=== PATIENT | male | born 1960 | race Caucasian/White ===

== ENCOUNTER → 2016-10-21 | Outpatient (CLI) | payer BC ==
[~2016-10-21] MED LIST: CHLO1TAB45 PO; DOXE10CA PO; FIBETAB PO; GABA-112 PO; GEMF600T3 PO; LMC/150 PO; METF500T5 PO; OMEP20CA59 PO; PROP80TA2 PO; QUET400T PO; TIZA4CAP PO
--- NOTE | 2016-10-21 13:24 | DIAGNOSTIC IMAGING REPORT ---
ULTRASOUND SOFT TISSUES NECK CLINICAL HISTORY: Neck mass. COMPARISON STUDY: No priors. FINDINGS: Real-time, grayscale, and color flow sonography of the soft tissues of the right neck is performed at the indicated site of interest. There is a benign-appearing right cervical lymph node in this region. This measures up to 6 mm in short axis and is almost completely fatty replaced. No concerning mass or fluid collection is seen. IMPRESSION: A benign-appearing cervical lymph node is incidentally noted the site of interest. Clinical follow-up will be required. This does not meet criteria for fine-needle aspiration. Electronically signed by: Gurinder Beck M.D. 10/21/2016 1:23 PM Dictated Date/Time: 10/21/2016 1:22 PM
== END | disposition home or self-care (01) ==
LOC: C.ULTRBC 13:00
PROVIDERS: ATTEND Physician Assistant
DX: R22.1 Localized swelling, mass and lump, neck (principal); R59.0 Localized enlarged lymph nodes

== ENCOUNTER → 2016-12-31 | Outpatient (CLI) | payer BC ==
[~2016-12-31] MED LIST changes: -DOXE10CA PO; -TIZA4CAP PO
[2016-12-31 09:50] LABS: BLOOD UREA NITROGEN 18 mg/dl (7-18); BUN/CREATININE RATIO 15.2 (10-20); CARBON DIOXIDE 26 mmol/L (21-32); CHLORIDE 111 mmol/L (98-107); CHOLESTEROL 195 mg/dl (0-200); GLUCOSE 101 mg/dl (70-99); POTASSIUM 4.3 mmol/L (3.5-5.1); SODIUM 144 mmol/L (136-145)
[2016-12-31 10:00] LABS: CHOLESTEROL/HDL RATIO 6.7; HDL CHOLESTEROL 29 mg/dl; LDL CHOLESTEROL CALCULATED 124 mg/dl; TRIGLYCERIDES 209 mg/dl (0-150); VERY LOW DENSITY LIPOPROT CALC 42 mg/dl
[2016-12-31 10:01] LABS: CALCIUM 8.9 mg/dl (8.5-10.1)
== END | disposition home or self-care (01) ==
LOC: C.LAB 08:52
PROVIDERS: ATTEND Psychiatry & Neurology Psychiatry
DX: Z79.899 Other long term (current) drug therapy (principal)

== ENCOUNTER → 2017-02-24 | Outpatient (CLI) | payer BC ==
[2017-02-24 09:57] LABS: THYROID STIMULATING HORMONE 1.23 uIu/ml (0.300-4.500)
== END | disposition home or self-care (01) ==
LOC: C.LAB 08:12
PROVIDERS: ATTEND Psychiatry & Neurology Psychiatry
DX: E03.9 Hypothyroidism, unspecified (principal)

== ENCOUNTER → 2017-04-09 | Outpatient (CLI) | payer BC ==
[~2017-04-09] VITALS: Ht 172.7 cm; Wt 96.7 kg
[2017-04-09 15:39] VITALS: BP 120/83; PULSE 93; Ht 172.7 cm; Wt 96.7 kg
== END | disposition home or self-care (01) ==
LOC: C.NEUR 15:25
PROVIDERS: ATTEND Internal Medicine Pulmonary Disease
DX: G47.30 Sleep apnea, unspecified (principal)

== ENCOUNTER → 2017-10-06 | Outpatient (CLI) | payer BC ==
[2017-10-06 12:48] LABS: BLOOD UREA NITROGEN 20 mg/dl (7-18); CARBON DIOXIDE 25 mmol/L (21-32); CREATININE 1.01 mg/dl (0.60-1.40); GLUCOSE 104 mg/dl (70-99); POTASSIUM 4.2 mmol/L (3.5-5.1); SODIUM 140 mmol/L (136-145)
[2017-10-06 12:50] LABS: HEMOGLOBIN A1C 5.4 % (4.5-5.6)
[2017-10-06 12:59] LABS: CHOLESTEROL 178 mg/dl (0-200); LDL CHOLESTEROL CALCULATED 117 mg/dl
[2017-10-06 13:07] LABS: T3 FREE 2.52 pg/ml (2.30-4.20)
== END | disposition home or self-care (01) ==
LOC: C.LAB 10:20
PROVIDERS: ATTEND Psychiatry & Neurology Psychiatry
DX: Z79.899 Other long term (current) drug therapy (principal)